=== PATIENT | female | born 1980 | race Caucasian/White ===

== ENCOUNTER → 2023-10-31 | Outpatient (CLI) | payer OTHER ==
[~2023-10-31] MED LIST: Iohexol 300 - 100 ML VIAL IV ONE
== END ==
LOC: RAD 10:00
DX: R13.10 Dysphagia, unspecified (principal)

== ENCOUNTER → 2024-01-03 | Outpatient (CLI) | payer OTHER | LOC: RAD 11:00 | DX: K76.0 Fatty (change of) liver, not elsewhere classified (principal); R13.10 Dysphagia, unspecified | CPT/HCPCS: Q9967 ==